=== PATIENT | male | born 1995 | race Caucasian/White ===

== ENCOUNTER → 2021-04-20 14:07 | Outpatient (BNVA) | payer OTHER, SELFPAY | PROVIDERS: Family Provider Nurse Practitioner; PCP Nurse Practitioner; Visit Provider Registered Nurse Neonatal Intensive Care | DX: Z20.822 Contact with and (suspected) exposure to COVID-19 (principal) | CPT/HCPCS: 87635 ==

== ENCOUNTER 2023-06-02 11:15 | Emergency (ER) | payer SELFPAY ==
[2023-06-02 11:25] VITALS: BP 134/82; PULSE 72; RESP 17; TEMP 36.9; O2SAT 98; BMI 27.8
--- NOTE | 2023-06-02 11:55 | ED_ITS ---
HPI - URI/Sore Throat General: Chief Complaint: Upper Respiratory Infection Stated Complaint: cough Time Seen by Provider: 06/02/23 11:19 Source: patient Mode of arrival: ambulatory History of Present Illness: This 28-year-old male presents to the ER with cough that started over a week ago. It is associated with headache, shortness of breath on exertion and chest discomfort. Cough is sometimes productive of scanty white or yellowish sputum. 3 days ago, patient had a temperature of 100 even. He has nasal congestion and sore throat. He has tried [id number] Mucinex, Delsym and tussinx without much improvement. He appears clinically stable with normal oxygen saturation on room air. Associated symptoms: Reports headache(s) and nasal congestion; Deny chills or chest pain Review of Systems Const: Denies: chills, body aches or change in appetite Eyes: Denies: change in vision or eye discharge ENMT: Reports: throat pain and nasal congestion; Denies: dental pain Card: Denies: chest pain or lightheadedness : Denies: dysuria Musc: Denies: neck pain or back pain Neuro: Reports: headache(s); Denies: weakness in extremities Psych: Denies: depression Evaristo/Lymph: Denies: easy bruising All/Imm: Denies: urticaria, tongue swelling or facial swelling PFS ED PFSH: Social History Smoking and tobacco status: current every day smoker smokeless tobacco Physical Exam Const: COMMON NORMALS: no acute distress, patient oriented x3, no limitations and alert HENMT: COMMON NORMALS: normocephalic HEAD & SCALP: normocephalic Eye: COMMON NORMALS: EOMs intact bilaterally Neck/C-Spine: COMMON NORMALS: full ROM and supple Chest: COMMONS NORMALS: normal inspection of the chest Resp: COMMON NORMALS: normal respiratory effort, No retractions and No use of accessory muscles OTHER: Terminal expiratory wheeze bilaterally. No increased work of breathing. Cardio: COMMON NORMALS: regular rate, regular rhythm and No murmurs present (Cardio) RATE: regular rate RHYTHM: regular rhythm GI: COMMON NORMALS: Normal to inspection, nondistended, normoactive bowel sounds present and non-tender : COMMON NORMALS: Yes no CVA tenderness BLADDER/KIDNEY EXAM: Yes no CVA t enderness Back/Pelvis: COMMON NORMALS: no CVA tenderness and no thoracic nor lumbar tenderness Extremity: GENERAL: Yes normal exam except as noted Neuro: COMMON NORMALS: patient oriented x3 and no focal motor deficits SENSORIUM/ORIENTATION: Yes alert Psych: COMMON NORMALS: mental status grossly normal and cooperative Course Vital Signs: Vital signs: Vital Signs Temperature 98.5 F 06/02/23 11:25 Pulse Rate 72 06/02/23 11:25 Respiratory Rate 17 06/02/23 11:25 Blood Pressure 134/82 06/02/23 11:25 Pulse Oximetry 98 06/02/23 11:25 Oxygen Delivery Me thod Room Air 06/02/23 11:25 MDM - URI/Sore Throat Medical Decision Making Medical decision making: History as above. Patient's symptoms have been going on for well over a week. COVID is negative and x-ray is negative for any acute intrathoracic process. However, he does have terminal expiratory wheeze on exam. Patient's history and findings are most consistent with acute bronchitis with bronchospasms. He will be treated with az ithromycin, albuterol and a short course of steroids. He will follow-up with his primary care physician for reevaluation. Reasons to return were discussed. Patient verbalized understanding and agrees with the plan. Lab Data 06/02/23 12:24 06/02/23 12:24 Laboratory Results WBC 8.80 10^3/uL (3.29-11.43) 06/02/23 12:24 RBC 4.71 10^6/uL (3.85-5.65) 06/02/23 12:24 Hgb 14.10 g/dL (11.27-16.99) 06/02/23 12:24 Hct 40.9 % (37-53) 06/02/23 12:24 MCV 86.8 fl (82-101) 06/02/23 12:24 MCH 29.9 pg (27-33) 06/02/23 12:24 MCHC 34.5 g/dL (30-55) 06/02/23 12:24 RDW 11.9 % (12.1-15.1) L 06/02/23 12:24 Plt Count 284 10^3/cmm (157-399) 06/02/23 12:24 MPV 10.6 fL (7.4-10.4) H 06/02/23 12:24 Neut % (Auto) 74.9 % 06/02/23 12:24 Lymph % (Auto) 14.4 % 06/02/23 12:24 Keith % (Auto) 6.9 % 06/02/23 12:24 Eos % (Auto) 2.6 % 06/02/23 12:24 Baso % (Auto) 0.9 % 06/02/23 12:24 Neut # (Auto) 6.58 10^3/uL (1.8-7.7) 06/02/23 12:24 Lymph # (Auto) 1.3 10^3/uL (0.8-4.8) 06/02/23 12:24 Keith # (Auto) 0.6 10^3/uL (0.2-0.9) 06/02/23 12:24 Eos # (Auto) 0.2 10^3/uL (0.0-0.8) 06/02/23 12:24 Baso # (Auto) 0.1 10^3/uL (0.0-0.1) 06/02/23 12:24 Nucleated RBC % (auto) 0 % 06/02/23 12:24 Nucleated RBCs # 0.0 /100WBC 06/02/23 12:24 Sodium 141 mmol/L (136-145) 06/02/23 12:24 Potassium 4.3 mmol/L (3.5-5.1) 06/02/23 12:24 Chloride 104 mmol/L (98-107) 06/02/23 12:24 Carbon Dioxide 26 mmol/L (22-29) 06/02/23 12:24 Anion Gap 15.3 (5-19) 06/02/23 12:24 BUN 9 mg/dL (6-20) 06/02/23 12:24 Creatinine 1.0 mg/dL (0.7-1.2) 06/02/23 12:24 GFR Calculation 89.0 mL/min (90-130) L 06/02/23 12:24 Glucose 101 mg/dL (65-115) 06/02/23 12:24 Calculated Osmolality 291 mOsm/kg (285-295) 06/02/23 12:24 Calcium 9.0 mg/dL (8.5-10.5) 06/02/23 12:24 Total Bilirubin 0.6 mg/dL (0.15-1.2) 06/02/23 12:24 AST 20 U/L (0-40) 06/02/23 12:24 ALT 33 U/L (0-41) 06/02/23 12:24 Alkaline Phosphatase 86 U/L (40-130) 06/02/23 12:24 Total Protein 7.4 g/dL (6.6-8.7) 06/02/23 12:24 Albumin 4.6 g/dL (3.5-5.2) 06/02/23 12:24 Globulin 2.8 g/dL (1.3-4.6) 06/02/23 12:24 SARS-CoV-2 Ag (Rapid) negative (Negative) 06/02/23 12:44 Discharge Plan Discharge Patient Disposition: Home Clinical Impression: Acute bronchitis with bronchospasm Condition: Stable Prescriptions: New Zithromax Z-Mak 250 mg tablet See Rx Instructions PO .COMPLEX Qty: 6 0RF Rx Instructions: For 250 mg dose pack: take 500 mg today (day 1), then 250 mg for 4 days (days 2-5) benzonatate 100 mg capsule 100 mg PO TID PRN (Reason: cough) Qty: 20 0RF albuterol sulfate 90 mcg/actuation HFA aerosol inhaler 4 inh inhalation Q4H PRN (Reason: shortness of breath or wheezing) Qty: 6.7 0RF Rx Instructions: until breathing returns to target peak flow/parameters prednisone 20 mg tablet 20 mg PO BID 5 Days Qty: 10 0RF Discharge Orders: Discharge ED (Routine); Ordered 06/02/23 Ordered By: Elham Tolbert Referrals: Maryan Muñoz APN [Primary Care Provider] - Discharge Diet: Usual diet Discharge Activity: Resume usual activity Patient Instructions: Opioid Safety, Pain Management Activity Restrictions/Additional Instructions: Use albuterol inhaler as needed for shortness of breath. Take prednisone and azithromycin as prescribed. Follow-up with your primary care physician in 2 to 3 days for reevaluation. Return with new or worsening symptoms. Coding Level of Care Code ED Completion Engineer for Lynne Boo
[2023-06-02] MEDS: predniSONE 20 mg Tablet 60 MG PO (12:41)
[2023-06-02 12:43] LABS: Basophils # 0.1 10^3/uL (0.0-0.1); Basophils % 0.9 %; Eosinophils # 0.2 10^3/uL (0.0-0.8); Eosinophils % 2.6 %; Hematocrit 40.9 % (37-53); Lymphocytes # 1.3 10^3/uL (0.8-4.8); Lymphocytes % 14.4 %; Mean Corpuscular HGB Conc 34.5 g/dL (30-55); Mean Corpuscular Hemoglobin 29.9 pg (27-33); Mean Corpuscular Volume 86.8 fl (82-101); Mean Platelet Volume 10.6 fL (7.4-10.4); Monocytes # 0.6 10^3/uL (0.2-0.9); Monocytes % 6.9 %; Neutrophils # 6.58 10^3/uL (1.8-7.7); Neutrophils % 74.9 %; Nucleated Red Blood Cells % 0 %; Platelet Count 284 10^3/cmm (157-399); Red Blood Count 4.71 10^6/uL (3.85-5.65); Red Cell Distribution Width 11.9 % (12.1-15.1)
[2023-06-02 13:01] LABS: Alanine Aminotransferase 33 U/L (0-41); Albumin Level 4.6 g/dL (3.5-5.2); Alkaline Phosphatase 86 U/L (40-130); Anion Gap 15.3 (5-19); Aspartate Amino Transferase 20 U/L (0-40); Blood Urea Nitrogen 9 mg/dL (6-20); Carbon Dioxide 26 mmol/L (22-29); Chloride 104 mmol/L (98-107); Globulin 2.8 g/dL (1.3-4.6); Glucose 101 mg/dL (65-115); Osmolality Calculated 291 mOsm/kg (285-295); Potassium 4.3 mmol/L (3.5-5.1); Sodium 141 mmol/L (136-145); Total Bilirubin 0.6 mg/dL (0.15-1.2); Total Protein 7.4 g/dL (6.6-8.7)
[2023-06-02 13:06] LABS: SARS Covid-2 Antigen negative (Negative)
--- NOTE | 2023-06-02 13:39 | XR_ITS ---
WS: [id number] Exam: XR chest 1V [id number] Date/Time of Exam: 06/02/2023 1:39 PM Reason For Exam: cough, shortness of breath on exertion No priors. The lungs are clear and fully expanded. Normal cardiomediastinal silhouette and regional bony element s. No pleural effusions. IMPRESSION: 1. Negative chest.
== END 2023-06-02 14:26 | disposition home or self-care (01) ==
PROVIDERS: Emergency Provider Family Medicine; PCP Nurse Practitioner Family
DX: J20.9 Acute bronchitis, unspecified (principal); Z20.822 Contact with and (suspected) exposure to COVID-19; F17.220 Nicotine dependence, chewing tobacco, uncomplicated
CPT/HCPCS: 36415; 71045; 80053; 85025; 87426; 99284; J7512